=== PATIENT | male | born 1975 | race Caucasian/White ===

== ENCOUNTER → 2020-03-12 | Outpatient (CLI) | payer OTHER ==
[2020-03-12 15:41] LABS: HEMATOCRIT 41.7 % (42.0-52.0); HEMOGLOBIN 13.3 gm/dL (14.0-18.0); MCH 25.7 pg (26.0-34.0); MCHC 31.9 g/dL (28.0-37.0); MCV 80.5 fL (80.0-100.0); MPV 7.6 fl. (7.2-11.1); RBC 5.17 mil/uL (4.50-6.00); RDW-CV 13.7 % (10.5-14.5); WBC 13.9 thou/uL (4.0-11.0)
[2020-03-12 15:54] LABS: ALBUMIN 3.3 g/dL (3.4-5.0); CALCIUM 9.4 mg/dL (8.5-10.1); CREATININE 1.2 mg/dL (0.6-1.3); POTASSIUM 4.3 mmol/L (3.5-5.1); TOTAL BILIRUBIN 0.4 mg/dL (<0.1-1.0); TOTAL PROTEIN 8.8 g/dL (6.4-8.2)
== END ==
LOC: M.CT 14:32
PROVIDERS: ATTEND Nurse Practitioner Family
DX: N28.1 Cyst of kidney, acquired (principal); K92.1 Melena